=== PATIENT | male | born 1960 | race African-American/Black ===

== ENCOUNTER 2018-02-20 13:07 | Day surgery (SDC) | payer MEDICAID ==
[~2018-02-20] VITALS: Ht 180.3 cm; Wt 87.3 kg
[2018-02-20] MEDS ORDERED: GLUCOPHAGE500 MG/TAB PO (14:08)
[2018-02-20] MEDS ORDERED: NORCO 325 MG-51 TAB PO (14:08)
[2018-02-20] MEDS ORDERED: PRINIVIL5 MG PO (14:09)
[2018-02-20] MEDS ORDERED: VALIUM 5MG T5 MG/TAB PO (14:09)
[2018-02-20 14:10] VITALS: BP 119/60; PULSE 64; TEMP 97.6
[2018-02-20 18:10] VITALS: BP 113/72; PULSE 58
[2018-02-20 18:25] VITALS: BP 119/69; PULSE 53
[2018-02-20 18:40] VITALS: BP 113/68; PULSE 59
[2018-02-20 18:55] VITALS: BP 114/64; PULSE 62
[2018-02-20 19:19] VITALS: BP 116/66; PULSE 57
== END 2018-02-20 21:35 ==
LOC: SDCO 13:07 → SURG 17:54 → SDCO 21:35
DX: N48.1 Balanitis (principal); I10 Essential (primary) hypertension; F17.210 Nicotine dependence, cigarettes, uncomplicated; E11.9 Type 2 diabetes mellitus without complications; Z79.84 Long term (current) use of oral hypoglycemic drugs; Z80.42 Family history of malignant neoplasm of prostate; Z80.0 Family history of malignant neoplasm of digestive organs; Z83.3 Family history of diabetes mellitus; Z80.8 Family history of malignant neoplasm of other organs or systems
CPT/HCPCS: OP; J2250; J2704; J3010; J7030

== ENCOUNTER 2021-09-15 06:14 | Day surgery (SDC) | payer MEDICAID ==
[~2021-09-15] VITALS: Ht 180.3 cm; Wt 79.5 kg
[2021-09-15] VITALS (8 sets, daily range): BP systolic 116–153; BP diastolic 63–90; PULSE 50–66; TEMP 97.9–98
[~2021-09-15 06:14] MED LIST: ASPIRIN E.C. 8181 MG PO; GLUCOPHAGE500 MG/TAB PO; GLUCOTROL 5M5 MG/TAB PO; LIPITOR20 MG PO; NORCO 325 MG-51 TAB PO; PRINIVIL5 MG PO; VALIUM 5MG T5 MG/TAB PO
[2021-09-15] MEDS ORDERED: VALIUM 10MG10 MG/TAB PO (07:32)
--- NOTE | 2021-09-15 09:05 | NUR ---
PT TO BAY [place] FROM [place]. 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 VS OBTAINED. ORIENTED TO CALL LIGHT. VERBALIZED UNDERSTANDING. PT REQUESTING TO REST. DENIES ANY NEEDS AT THIS TIME. WILL CONTINUE TO MONITOR.
--- NOTE | 2021-09-15 09:20 | NUR ---
PT SLEEPING. DENIES ANY NEEDS.
--- NOTE | 2021-09-15 10:05 | NUR ---
DAUGHTER AT BEDSIDE. PT STILL SLEEPING.
--- NOTE | 2021-09-15 10:35 | NUR ---
PT CONTINUES TO REST COMFORTABLY. DENIES ANY NEEDS.
--- NOTE | 2021-09-15 11:05 | NUR ---
PT WAKING UP AND DENIES ANY ISSUES. WILL CONTINUE TO MONITOR.
--- NOTE | 2021-09-15 11:20 | NUR ---
PT TOLERATING WATER WITHOUT DIFFICULTY. PT CONTINUES TO DENY ISSUES. WILL CONTINUE TO MONITOR.
--- NOTE | 2021-09-15 11:45 | NUR ---
PT TOLERATING WATER AND REQUESTS TO PREPARE FOR DISCHARGE.
--- NOTE | 2021-09-15 11:55 | NUR ---
IV DC'D AT THIS TIME.
--- NOTE | 2021-09-15 12:10 | NUR ---
DISCHARGE EDUCAICT COMPLETED WITH PT AND HIS DAUGHTER. THEY VERBALIZED UNDERSTANDING OF HOME AND FOLLOW UP CARE. ALL QUESTIONS ANSWERED. DISCHARGE PAPERWORK GIVEN TO HIS DAUGHTER.
--- NOTE | 2021-09-15 12:20 | NUR ---
PT OFF UNIT PER PERSONAL WHEELCHAIR. PT DISCHARGE TO HOME WITH DAUGHTER PER PERSONAL VEHICLE.
== END 2021-09-15 12:20 | disposition home or self-care (01) ==
LOC: SDCO 06:14
DX: N48.29 Other inflammatory disorders of penis (principal); F17.210 Nicotine dependence, cigarettes, uncomplicated; Z79.899 Other long term (current) drug therapy
CPT/HCPCS: J0690; J2704; J7030